=== PATIENT | male | born 1960 | race Caucasian/White ===

== ENCOUNTER 2017-03-04 07:49 | Day surgery (SDC) | payer OTHER ==
[2017-03-04] MEDS ORDERED: fentaNYL 100 MCG/2 ML INJ ONE (08:31)
[2017-03-04] MEDS ORDERED: MIDAZOLAM 2 MG/2 ML VIAL ONE (08:32)
[2017-03-04] MEDS ORDERED: BUPIVACAINE 0.5% 30 ML SDV ONE (09:36)
[2017-03-04] MEDS ORDERED: TRIAMCINOLONE ACETONIDE 200 MG/5 ML MDV IM ONE (09:36)
[2017-03-04] MEDS ORDERED: IOPAMIDOL (ISOVUE-M 300) 15 ML VIAL ONE (09:36)
== END 2017-03-04 10:30 | disposition home health service (06) ==
LOC: FIMAGING 07:49
PROVIDERS: ATTEND Radiology Diagnostic Radiology
PROC: 3E0S3BZ Introduction of Anesthetic Agent into Epidural Space, Percutaneous Approach (ICD-10-PCS; principal; 2017-03-04 09:35)
PROC: 3E0S33Z Introduction of Anti-inflammatory into Epidural Space, Percutaneous Approach (ICD-10-PCS; principal; 2017-03-04 09:35)
DX: M51.16 Intervertebral disc disorders with radiculopathy, lumbar region (principal)
CPT/HCPCS: J2250; J3010; J3301; Q9967